=== PATIENT | female | born 1955 | race Caucasian/White ===

== ENCOUNTER → 2020-07-31 10:36 | Outpatient (CLI) | payer MEDICARE, BC, SELFPAY ==
--- NOTE | ~2020-07-31 | US_ITS ---
US abdomen complete EXAMINATION: US Abdomen Complete INDICATION: Right lower quadrant pain. Right-sided abdominal pain. Nausea. PROCEDURE: Realtime High Resolution abdomen ultrasound. COMPARISON: No prior studies for comparison FINDINGS: Gallbladder within normal limits. No gallstones, pericholecystic fluid, gallbladder wall t hickening or biliary dilatation. Common bile duct measures 5 mm. Liver echotexture within normal limits without focal mass. Pancreas within normal limits. Pancreati c tail is obscured by bowel gas. Spleen is unremarkeable. Renal echotexture is within normal limits bilaterally without hydronephrosis, contour deforming mass or renal stone. Right kidney measures 9.3 cm. Left kidney measures 10.5 cm. Visualized aspects of the aorta and IVC are within normal limits. Portal vein is patent. No sonograph ic Johnson's sign indicated by the technologist. IMPRESSION: 1: Normal abdominal ultrasound. Reviewed, dictated and finalized at location B. T TURNER
== END ==
PROVIDERS: Visit Provider Advanced Practice Midwife
DX: R11.0 Nausea (principal); R10.31 Right lower quadrant pain
CPT/HCPCS: 76700

== ENCOUNTER → 2020-08-08 12:41 | Outpatient (CLI) | payer MEDICARE, BC, SELFPAY ==
--- NOTE | ~2020-08-08 | US_ITS ---
EXAMINATION: US pelvic complete EXAM DATE: 08/08/2020 13:04 INDICATION: Right sided abdominal pain. TECHNIQUE: Pelvic transabdominal sonogram was performed. There are multiple grayscale and Doppler im ages available for interpretation. There is no prior study for comparison. FINDINGS: Uterus measures 7.1 x 4.7 x 4.8 cm, possibly with a posterior myometrial 4 cm fibroid (the se transabdominal images are limited). Endometrial stripe measures 5 mm, within normal limits. There is no free pelvic fluid. Right adnexa: The ovary is not identified. There is no adnexal mass. Left adnexa: There is probably identified measuring 2.6 x 1.4 x 1.8 cm, normal. IMPRESSION: 1. Possible fibroid. 2. Right ovary not identified. Reviewed, dictated and finalized at location A. 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
== END ==
PROVIDERS: Visit Provider Advanced Practice Midwife
DX: R11.0 Nausea (principal)
CPT/HCPCS: 76856

== ENCOUNTER → 2020-11-06 10:37 | Outpatient (CLI) | payer MEDICARE, BC, SELFPAY ==
--- NOTE | ~2020-11-06 | MM_ITS ---
EXAMINATION: MM screening [facility] BI w desi HISTORY: Screening TECHNIQUE: Craniocaudal and mediolateral oblique 3-D tomosynthesis images were obtained and synthetic 2-D images were generated. CAD analysis was submitted and interpreted. COMPARISON: Comparison to multiple prior studies sequentially, with oldest reviewed study dated 03/06. BREAST PARENCHYMAL COMPOSITION: There are scattered areas of fibroglandular density. FINDINGS: There is no evidence of suspicious mass, calcification, or architectural distortion to sugg est malignancy in either breast. There has been no suspicious interval change. IMPRESSION: 1. No mammographic evidence of malignancy. 2. Recommend routine screening mammography in one year. BI-RADS Category 1: Negative Reviewed, dictated and finalized at location A.
--- NOTE | ~2020-11-06 | DEXA_ITS ---
Bone Density Report Name: Diane Zhao Age: 65 Sex: Female Ethnicity: White Date of : 1955 Indication: postmenopausal; screening for osteoporosis; height loss; Referring Provider: Tara Tse Study: Bone densitometry was performed. Exam Date: November 06, 2020 Accession number: [id number] Bone Density: Region BMD T-score Z-score Classification AP Spine (L1, L2, L3) 1.001 -0.2 1.7 Normal Femoral Neck (Left) 0.715 -1.2 0.4 Osteopenia Total Hip (Left) 0.927 -0.1 1.2 Normal Femoral Neck (Right) 0.676 -1.6 0.0 Osteopenia Total Hip (Right) 0.902 -0.3 1.0 Normal Total Hip Mean 0.915 -0.2 1.1 Normal World Health Organization criteria for BMD impression classify patients as: Normal (T-score at or above -1.0), Osteopenia (T-score between -1.0 and -2.5), or Osteoporosis (T-score at or below -2.5). 10-year Fracture Risk(1): Major Osteoporotic Fracture 9.1% Hip Fracture 1.0% Reported Risk Factors: [place] (), Neck BMD=0.676, BMI=28.0 (1) FRAX(R) Version 3.08. Fracture probability calculated for an untreated patient. Fracture probability may be lower if the patient has received treatment. Previous Exams: Region Exam Age BMD T-score BMD Change BMD Change Date g/cm2 vs Baseline vs Previous AP Spine(L1, L2, L3) 11/06/2020 65 1.001 -0.2 -0.120 0.002 03/06/2014 58 0.999 -0.2 -0.121 -0.021 01/12/2012 56 1.020 0.0 -0.100 0.006 09/29/2009 54 1.014 0.0 -0.107 -0.017 07/13/2006 50 1.030 0.1 -0.090 -0.090 01/31/2004 48 1.120 0.9 Total Hip(Left) 11/06/2020 65 0.927 -0.1 -0.072 -0.083* 03/06/2014 58 1.010 0.6 0.011 0.116* 01/12/2012 56 0.894 -0.4 -0.105 -0.068* 09/29/2009 54 0.962 0.2 -0.037 -0.062* 07/13/2006 50 1.025 0.7 0.025 0.025 01/31/2004 48 0.999 0.5 Total Hip(Right) 11/06/2020 65 0.902 -0.3 -0.152 -0.056* 03/06/2014 58 0.958 0.1 -0.096 0.086* 01/12/2012 56 0.872 -0.6 -0.182 -0.086* 09/29/2009 54 0.959 0.1 -0.096 -0.059* 07/13/2006 50 1.018 0.6 -0.036 -0.036 01/31/2004 48 1.054 0.9 *Denotes significance at 95% confidence level, LSC for AP Spine = 0.022 g/cm2, LSC for Total Hip = 0.027 g/cm2 Clinical Information Provided by Patient:
== END ==
PROVIDERS: Visit Provider Advanced Practice Midwife
DX: Z12.31 Encounter for screening mammogram for malignant neoplasm of breast (principal); Z78.0 Asymptomatic menopausal state; M85.89 Other specified disorders of bone density and structure, multiple sites
CPT/HCPCS: 77063; 77067; 77080

== ENCOUNTER → 2021-11-26 10:40 | Outpatient (CLI) | payer MEDICARE, BC, SELFPAY ==
--- NOTE | ~2021-11-26 | US_ITS ---
US abdomen complete EXAMINATION: US Abdomen Complete INDICATION: Nausea. History of pancreatic cancer. PROCEDURE: Realtime High Resolution abdomen ultrasound. COMPARISON: No prior studies for comparison FINDINGS: Gallbladder within normal limits. No gallstones, pericholecystic fluid, gallbladder wall t hickening or biliary dilatation. Common bile duct measures 3 mm. Liver echotexture within normal limits without focal mass. Pancreas within normal limits. Pancreati c tail is obscured by bowel gas. Spleen is unremarkeable. Renal echotexture is within normal limits bilaterally without hydronephrosis, contour deforming mass or renal stone. Right kidney measures 10.1 cm. Left kidney measures 10.4 cm. Visualized aspects of the aorta and IVC are within normal limits. Portal vein is patent. No sonograph ic Johnson's sign indicated by the technologist. IMPRESSION: 1: Normal abdominal ultrasound. Reviewed, dictated and finalized at location B.
== END ==
DX: Z80.0 Family history of malignant neoplasm of digestive organs (principal)
CPT/HCPCS: 76700

== ENCOUNTER → 2022-03-15 13:32 | Outpatient (CLI) | payer MEDICARE, BC, SELFPAY ==
--- NOTE | ~2022-03-15 | MM_ITS ---
EXAMINATION: MM screening [facility] BI w desi HISTORY: Screening mammogram TECHNIQUE: Craniocaudal and mediolateral oblique 3-D tomosynthesis images were obtained and synthetic 2-D images were generated. CAD analysis was submitted and interpreted. COMPARISON: 11/06/2020, 06/19/2019, 05/30/2018 bilateral screening mammogram examinations BREAST PARENCHYMAL COMPOSITION: There are scattered areas of fibroglandular density. FINDINGS: There is no evidence of suspicious mass, calcification, or architectural distortion to sugg est malignancy in either breast. There has been no suspicious interval change. IMPRESSION: 1. No mammographic evidence of malignancy. 2. Recommend routine screening mammography in one year. BI-RADS Category 1: Negative Reviewed, dictated and finalized at location A.
== END ==
PROVIDERS: Visit Provider Advanced Practice Midwife
DX: Z12.31 Encounter for screening mammogram for malignant neoplasm of breast (principal)
CPT/HCPCS: 77063; 77067

== ENCOUNTER 2023-07-18 12:17 | Outpatient (CLI) | payer MEDICARE, BC, SELFPAY ==
--- NOTE | ~2023-07-18 | MM_ITS ---
EXAMINATION: MM screening [facility] BI w desi HISTORY: Screening TECHNIQUE: Craniocaudal and mediolateral oblique 3-D tomosynthesis images were obtained and synthetic 2-D images were generated. CAD analysis was submitted and interpreted. COMPARISON: Comparison to multiple prior studies sequentially, with oldest reviewed study dated 04/21. BREAST PARENCHYMAL COMPOSITION: There are scattered areas of fibroglandular density. FINDINGS: There is no evidence of suspicious mass, calcification, or architectural distortion to sugg est malignancy in either breast. There has been no suspicious interval change. IMPRESSION: 1. No mammographic evidence of malignancy. 2. Recommend routine screening mammography in one year. BI-RADS Category 1: Negative Reviewed, dictated and finalized at location A. 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
== END 2023-07-18 12:18 ==
PROVIDERS: Visit Provider Advanced Practice Midwife
DX: Z12.31 Encounter for screening mammogram for malignant neoplasm of breast (principal)
CPT/HCPCS: 77063; 77067